=== PATIENT | female | born 1955 | race Caucasian/White ===

== ENCOUNTER 2021-01-29 15:21 | Emergency (ER) | payer BC, SELFPAY ==
--- NOTE | ~2021-01-29 | XR_ITS ---
EXAMINATION: XR CHEST CLINICAL INFORMATION: Shortness of breath COMPARISON: None TECHNIQUE: Frontal view of the chest was obtained. FINDINGS: No significant abnormality is noted involving the heart, lungs, mediastinum, bony thorax or soft tissues. XR/XR chest 1V IMPRESSION: Unremarkable examination.
[2021-01-29 15:35] VITALS: BP 147/93; PULSE 87; RESP 18; TEMP 36.3; O2SAT 98; BMI 40.1
--- NOTE | 2021-01-29 15:45 | ED_ITS ---
HPI - General Adult General Chief complaint: General Medical Stated complaint: covid symptoms Time Seen by Provider: 01/29/21 15:39 Source: patient Mode of arrival: ambulatory Limitations: no limitations History of Present Illness HPI narrative: 65 y/o female with history of HTN, obesity, BHARGAVI who presents to the ED today from home c/o CHACON, body aches and lightheadedness for the last 3 days. She had her 1st COVID vaccine on 01/14. Her symptoms started 3 days ago when she was at work at the [employer]. She reported SOB when walking around as well as dizziness when going from sitting to standing quickly. She reports her doctor has tried her on several medications for her blood pressure lately howevr she has had multiple side effects and required adjustments and changes. She admits to taking half doses of two different pills the last 3 days. Two of them include HCTZ which she did not realize until she was providing her history here today. She denies fever, chills, nausea, vomiting, abdominal pain. She has had some cramping in her muscles. She has been eating and drinking normally but reports a 15 lb weight loss with dietary adjustments to vegan over the last 1 month. MD complaint: CHACON, lightheaded. Onset (ago): day(s) (3) Location: head, chest, left, right and lower extremity Radiation: non-radiation Severity: moderate Quality: aching Pain Consistency: intermittent Relieving factors: rest Exacerbating factors: medication and movement Associated symptoms: confusion, diaphoresis, shortness of breath and weakness Treatments prior to arrival: none Related Data Allergies Allergy/AdvReac Type Severity Reaction Status Date / Time sulfamethoxazole AdvReac Severe STOMACH Verified 01/29/21 15:39 [From BACTRIM] UPSET trimethoprim [From BACTRIM] AdvReac Severe STOMACH Unverified 07/19/20 15:51 UPSET Review of Systems Review of Systems: Constitutional: No Fever, No Chills ENT/Mouth: No sore throat, No Rhinorrhea, No Swallowing Difficulty Eyes: No Eye Pain, No Swelling, No Redness Cardiovascular: No Chest Pain, + SOB, No Orthopnea, No Edema Respiratory: No Cough, No Sputum, No Wheezing, + dyspnea Gastrointestinal: No Nausea, No Vomiting, No Diarrhea, No abdominal Pain, No Hematochezia, No Melena Genitourinary: No Dysuria, + Urinary Frequency, No Hematuria Musculoskeletal: No joint pain, + Myalgias Skin: No Skin Lesions, No rash Neuro: + Weakness (generalized), No Numbness, + Dizziness, No Headache Psych: + Anxiety/Panic, No Depression Heme/Lymph: No Bruising, No Lymphadenopathy Endocrine: No Polyuria, No Polydipsia [facility] Past Medical History Attestation statement: The following information was validated with the patient. Medical History High blood pressure Social History Social History Advance Directives: No Advance Directives Information Provided: Yes Physical Exam Vital Signs: Vital Signs: Last Vital Signs Temp 97.3 F 01/29/21 15:35 Pulse 87 01/29/21 15:35 Resp 18 01/29/21 15:35 BP 147/93 H 01/29/21 15:35 Pulse Ox 98 01/29/21 15:35 Body Mass Index 40.1 Appearance: Alert. Oriented X3. No acute distress. Eyes: Pupils equal, round and reactive to light. ENT: Pharynx normal. Neck: Normal inspection. Neck supple. CVS: Normal heart rate and rhythm. Pulses normal. Respiratory: No respiratory distress. Breath sounds normal. Abdomen: Obese, soft and non-tender. +BS x4 Skin: Skin warm and dry. Normal skin color. Normal skin turgor. No rashes. Extremities: No lower extremity edema. Negative Penelope's sign. Neuro: Oriented X 3. No motor deficit. No sensory deficit. Steady gait. Normal finger to nose and heel to cheung bilaterally. Speaks in clear sentences. Course Course Course Narrative: 65 y/o female presenting with 3 days of feeling unwell with reports of CHACON, muscle aches and lightheadedness since medications have been self adjusted. Concern for dehydration, electrolyte derangements with possibly taking too much HCTZ. With dietary modifications and weight loss she could not be taking in enough calories while working. Doubt ACS given lack of chest pain but will get EKG. Will check basic lab workup, CXR and Viral PCR as well. She is feeling significantly better since getting to the hospital. Reevaluation(s) Reevaluation #1: EKG is normal. CXR is negative. Lab workup unremarkable. It is likely that her symptoms are due to fluctuations in BP vs side effects from the medications that she has been self-titrating at home. We discussed the importance of being honest iwth her doctor and following up with him tomorrow for recs on meds to take for HTN. She was encouraged to come back to the ER if symptoms return or worsen. Stable for d/c. Medical Decision Making Lab Data Result diagrams: 01/29/21 16:09 01/29/21 16:09 Labs: Lab Results 01/29/21 01/29/21 01/29/21 Range/Units 15:51 16:09 16:09 WBC 7.8 (4.8-10.8) X10*3/uL RBC 5.11 (4.20-5.50) X10*6/uL Hgb 14.3 (12.0-16.0) g/dl Hct 43.9 (37-47) % MCV 85.9 (80-98) fL MCH 28.0 (27.0-33.0) pg MCHC 32.6 (31.0-35.0) g/dl RDW 14.2 (11.0-16.0) % Plt Count 416 H (160-400) X10*3/uL MPV 9.2 L (9.4-12.3) fL Immature Gran % (Auto) 0.3 (0.0-0.4) % Neut % (Auto) 70.6 (45-73) % Lymph % (Auto) 20.9 (20-40) % Cochran % (Auto) 6.8 (2-11) % Eos % (Auto) 1.3 (0-4) % Baso % (Auto) 0.1 (0-2) % Lymph # (Auto) 1.6 (1.2-4.9) X10*3/uL [place]chran # (Auto) 0.5 (0.1-1.2) X10*3/uL Eos # (Auto) 0.1 (0.0-0.4) X10*3/uL Baso # (Auto) 0.0 (0.0-0.2) X10*3/uL Abs Immat Gran (auto) 0.02 (0.00-0.03) X10*3/uL Absolute Neuts (auto) 5.5 (2.0-8.3) X10*3/uL Absolute Nucleated RBC 0.000 (0.0-0.012) X10*3/uL Nucleated RBC % (auto) 0.0 (0.0-0.2) /100WBC Sodium 140 (135-145) mmol/L Potassium 4.1 (3.3-5.1) mmol/L Chloride 101 (96-108) mmol/L Carbon Dioxide 27 (22-29) mmol/L Anion Gap 16 (12-20) BUN 17 H (9-16) mg/dL Creatinine 0.85 (0.5-1.4) mg/dL Estim Creat Clear Calc 77.6 Estimated GFR > 60 Random Glucose 95 (60-115) mg/dL Calcium 9.4 (8.4-10.2) mg/dL Magnesium 2.2 (1.6-2.6) mg/dL Coronavirus (PCR) NEGATIVE (Negative) Influenza Type A (PCR) NEGATIVE (Negative) Influenza Type B (PCR) NEGATIVE (Negative) RSV RNA Qual (PCR) NEGATIVE (Negative) ECG Data Attestation: I personally reviewed and interpreted this ECG as follows: Interpretation: normal sinus rhythm, HR 72 bpm, normal AK interval, normal QTc, no ST segment elevations or depressions Critical Care Time Critical Care Time Critical Care Time: No Discharge Plan Discharge Clinical Impression: Adverse drug reaction Qualifiers: Encounter type: initial encounter Qualified Code(s): T50.905A - Adverse effect of unspecified drugs, medicaments and biological substances, initial encounter Patient Disposition: Home, Self-Care Instructions: Hypertension (ED) Additional Instructions: Your EKG was normal. Your chest x-ray was normal. Your lab workup was largely unremarkable, perhaps VERY mild dehydration but not clinically significant. You were negative for COVID, Influenza and RSV. It is likely that your symptoms are due to the blood pressure medications that you have been taking OR variations in your blood pressure at work. Stay hydrated and rest. If you have any worsening or persistent symptoms come back to the ER for further evaluation. Follow up with your doctor tomorrow for recommendations on how you should manage your blood pressure meds.
--- NOTE | 2021-01-29 16:03 | ECG_ITS ---
Test Reason : DIZZINESS Blood Pressure : / mmHG Vent. Rate : 072 BPM Atrial Rate : 072 BPM P-R Int : 150 ms QRS Dur : 076 ms QT Int : 400 ms P-R-T Axes : 045 027 037 degrees QTc Int : 438 ms Normal sinus rhythm Normal ECG When compared with ECG of 01-MAY-2005 12:57, No significant change was found Referred By: Angelina Espinoza Electronically Signed By:Dm Gilbert
[2021-01-29 16:15] LABS: MANUAL DIFF FLAG NO
[2021-01-29 16:21] LABS: Basophils Percent Auto 0.1 % (0-2); Eosinophils Absolute Auto 0.1 X10*3/uL (0.0-0.4); Eosinophils Percent Auto 1.3 % (0-4); Hematocrit 43.9 % (37-47); Hemoglobin 14.3 g/dl (12.0-16.0); Imm Gran Abs Auto 0.02 X10*3/uL (0.00-0.03); Imm Gran Pct Auto 0.3 % (0.0-0.4); Lymphocytes Absolute Auto 1.6 X10*3/uL (1.2-4.9); Lymphocytes Percent Auto 20.9 % (20-40); Mean Corpuscular HGB Conc 32.6 g/dl (31.0-35.0); Mean Corpuscular Volume 85.9 fL (80-98); Mean Platelet Volume 9.2 fL (9.4-12.3); Monocytes Absolute Auto 0.5 X10*3/uL (0.1-1.2); Monocytes Percent Auto 6.8 % (2-11); Neutrophils Absolute Auto 5.5 X10*3/uL (2.0-8.3); Neutrophils Percent Auto 70.6 % (45-73); Platelet Count 416 X10*3/uL (160-400); Red Blood Count 5.11 X10*6/uL (4.20-5.50); Red Cell Distribution Width 14.2 % (11.0-16.0); White Blood Count 7.8 X10*3/uL (4.8-10.8)
[2021-01-29 16:43] LABS: Anion Gap 16 (12-20); Blood Urea Nitrogen 17 mg/dL (9-16); Calcium 9.4 mg/dL (8.4-10.2); Carbon Dioxide 27 mmol/L (22-29); Chloride 101 mmol/L (96-108); Creatinine Clr Calc Pharmacy 77.6; Estimated Glomerular Filt Rate > 60; Glucose Random 95 mg/dL (60-115); Magnesium 2.2 mg/dL (1.6-2.6); Potassium 4.1 mmol/L (3.3-5.1); Sodium 140 mmol/L (135-145)
[2021-01-29 16:45] LABS: Influenza A PCR NEGATIVE (Negative); Influenza B PCR NEGATIVE (Negative); Resp Syncy Virus RNA Qual PCR NEGATIVE (Negative); SARS COV2 PCR INHOUSE NEGATIVE (Negative)
== END 2021-01-29 17:28 | disposition home or self-care (01) ==
PROVIDERS: Physician Assistant; Emergency Provider Emergency Medicine; PCP Hospitalist
DX: M79.10 Myalgia, unspecified site (principal); R06.02 Shortness of breath; T50.2X5A Adverse effect of carbonic-anhydrase inhibitors, benzothiadiazides and other diuretics, initial encounter; Y92.009 Unspecified place in unspecified non-institutional (private) residence as the place of occurrence of the external cause; Z20.822 Contact with and (suspected) exposure to COVID-19
CPT/HCPCS: 0241U; 36415; 71045; 80048; 83735; 85025; 93005; 99283

== ENCOUNTER 2025-02-23 11:39 | Emergency (ER) | payer MEDICARE, BC, SELFPAY ==
[2025-02-23] VITALS (8 sets, daily range): BP systolic 160–187; BP diastolic 80–96; PULSE 62–78; RESP 16; TEMP 36.4–36.6; O2SAT 96; BMI 42.2
--- NOTE | ~2025-02-23 | XR_ITS ---
EXAMINATION: XR CHEST CLINICAL INFORMATION: syncope COMPARISON: January 29, 2021. TECHNIQUE: Frontal view of the chest was obtained. FINDINGS: No consolidation, pleural effusion or pneumothorax. Cardiomediastinal silhouette size is normal. Multilevel thoracic and upper lumbar spondylosis. Patient's large body habitus.. XR/XR chest 1V IMPRESSION: No acute airspace disease. Electronically signed by: Roney Garza MD 02/23/2025 12:43 PM EDT
--- NOTE | ~2025-02-23 | CT_ITS ---
EXAMINATION: CT CERVICAL SPINE WITHOUT CONTRAST CLINICAL INFORMATION: Syncope. Fall. COMPARISON: None available. TECHNIQUE: Contiguous axial images through the cervical spine using 3 mm collimation with bone and soft tissue algorithm. Sagittal and coronal reformatted images acquired. This CT examination was performed using dose optimization techniques as appropriate, variously including the following: *Automated exposure control *Adjustment of mA and/or kV according to patient size (this includes techniques or standardized protocols for targeted exams where dose is matched to indication/reason for exam; i.e. extremities or head) *Use of iterative reconstruction technique DLP: 650.30 mGy centimeter. FINDINGS: Craniocervical junction is intact. C1 is intact. C2 is intact. C3 is intact. C4 is intact. C5 is intact. C6 is intact. Right-sided facet joint hypertrophy. C7 is intact. Facet joint hypertrophy, bilaterally. No gross prevertebral compartment hematoma. Marginal osteophyte formation and endplate sclerosis subchondral cyst formation and decreased intervertebral disc height, C4-5 C5-6 and C6-7 levels. 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 Reverse curvature apex at C4-5. No gross malalignment. Trabeculated bone lesion at T1 likely intraosseous hemangioma. Degenerative changes in the periodontal C1 region. Retropharyngeal trajectory, right carotid artery system. Tympanic cavities and mastoid cells are aerated. Soft tissue fullness versus dominant nodule right thyroid lobe. CT/CT cervical spine wo IV con IMPRESSION: Multilevel cervical spondylosis without acute fracture or trauma-related listhesis. Consider OPLL syndrome C5 C7 resulting in central spinal canal stenosis. Fleischner guidelines were followed. Electronically signed by: Roney Garza MD 02/23/2025 01:24 PM EDT
--- NOTE | ~2025-02-23 | CT_ITS ---
EXAMINATION: CT HEAD WITHOUT CONTRAST CLINICAL INFORMATION: ?head trauma, syncope COMPARISON: None available. TECHNIQUE: Contiguous axial imaging was performed from the skull base to vertex without intravenous administration of contrast. This CT examination was performed using dose optimization techniques as appropriate, variously including the following: *Automated exposure control *Adjustment of mA and/or kV according to patient size (this includes techniques or standardized protocols for targeted exams where dose is matched to indication/reason for exam; i.e. extremities or head) *Use of iterative reconstruction technique DLP: 704.47 mGy-cm FINDINGS: Bony calvarium is intact. Skull base is intact. No acute intracranial hemorrhage, mass effect, midline shift, hydrocephalus or herniation. Posadas-white matter differentiation is normal. Posterior cranial fossa contents demonstrated no acute intracranial hemorrhage. Prominence of the extra-axial CSF spaces cerebral sulci as well as the perimesencephalic cisterns. Old lacunar infarcts, basal ganglia and extracapsular. No air-fluid levels in the paranasal sinuses. Tympanic cavities and mastoid air cells are aerated. CT/CT head/brain wo IV con IMPRESSION: No acute fracture, bony calvarium. No acute intracranial hemorrhage. Small vessel occlusive disease. Electronically signed by: Roney Garza MD 02/23/2025 01:12 PM EDT
--- NOTE | 2025-02-23 12:18 | ECG_ITS ---
Test Reason : SYNCOPE Blood Pressure : */* mmHG Vent. Rate : 68 BPM Atrial Rate : 68 BPM P-R Int : 156 ms QRS Dur : 78 ms QT Int : 422 ms P-R-T Axes : 32 6 10 degrees QTcB Int : 448 ms Normal sinus rhythm Normal ECG When compared with ECG of 29-Jan-2021 16:21, No significant change was found Referred By: Shaina Gifford Electronically Signed By: MARIBELL LALA
--- NOTE | 2025-02-23 12:18 | ED_ITS ---
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 Patient reports waking up from sleep in her recliner around 0100 this morning and then felt nauseous with the urge to defecate. She reports ambulating to the bathroom and having two large loose bowel movements. Reports feeling nauseous with associated chills and diaphoresis. Went to stand up from the toilet and had a syncopal episode. Reports waking up on the bathroom floor. She was able to ambulate back to her couch and fell asleep until morning. Upon waking this morning, she called her insurance hotline to speak with a nurse. They advised her to come to the ED. She reports a tight sensation to her abdomen. No pain or cramping. She has not had any further episodes of loose stool. Last p.o. intake was last night around 11:00 p.m.. Denies consuming any unusual foods. Admits that she did not take her blood pressure medication prior to arrival today. States she feels dehydrated. Denies dizziness, headache, vision changes, chest pain, shortness of breath, nausea, vomiting, abdominal pain, urinary symptoms, flank pain. No recent travel outside the country. Related Data Home Medications ?Medication ?Instructions ?Recorded ?Confirmed No Known Home Meds 10/03/22 10/03/22 Allergies Allergy/AdvReac Type Severity Reaction Status Date / Time sulfamethoxazole AdvReac Severe STOMACH Verified 02/23/25 12: [From BACTRIM] UPSET trimethoprim [From BACTRIM] AdvReac Severe STOMACH Verified 02/23/25 12:22 UPSET Review of Systems 2 Review of Systems: Yes all other systems are reviewed and are negative PMFSH Past Medical History Attestation statement: The following information was validated with the patient. Source: old records reviewed and nursing notes reviewed Medical History High blood pressure Surgical History Hx of appendectomy Hx of adenoidectomy Hx of tonsillectomy Family History Family History Father Heart problem Mother Heart problem Daughter No problems noted. Social History Social History Alcohol intake: current Alcohol intake frequency: holidays/special occasions only Patient Tobacco Use Status: Never used Tobacco Advance Directives: No Advance Directives Information Provided: Yes Do you have a plan to hurt others: No Plan Physical Exam 2 Vital Signs: Vital Signs: Last Vital Signs Temp 97.8 F 02/23/25 18:56 Pulse 67 02/23/25 18:56 Resp 16 02/23/25 18:56 BP 170/89 H 02/23/25 18:56 Pulse Ox 96 02/23/25 18:56 O2 Del Method Room Air 02/23/25 18:56 BMI result Body Mass Index 42.2 Afebrile. hypertensive General: Well appearing, in no acute distress. Skin: Warm, dry, intact. No rashes or lesions. Head: Normocephalic, atraumatic. EENT: Hearing is intact b/l. Conjunctiva clear. Sclera is anicteric. PERRLA. EOM intact. ? Neck: Supple without LAD. FROM. Cardiac: Chest wall symmetric. RRR Lungs: Normal respiratory effort without accessory muscle use. CTA bilaterally. Abdomen: Soft, non-tender, non-distended. No rebound tenderness or guarding. Positive BS x4. Back: No midline spinous tenderness or step-off deformity Ext: Upper and lower extremities atraumatic, without deformity, swelling or erythema Neuro: AOx3. Normal speech. Normal [id number], [id number] Strength 5/5 intact throughout. Sensation intact to light touch. NV intact distally. Ambulating with steady gait to the bathroom. Course Course Course Narrative: This is a Rapid Medical Exam performed in triage by Shaina Gifford PA-C. Full HPI, ROS and PE to be performed by primary ED provider. 69-year-old female with a past medical history HTN presenting to the ED c/o syncopal episode while using the bathroom last night, admits to having chills, diaphoresis, nausea, diarrhea, uneasy stomach and feeling like I was going to prior to syncope & then woke up on the floor. Unknown head trauma or how long she was on the ground. Also reports confusion. denies AC use. denies CP/SOB PE: ambulating w/steady gait, nonfocal. Plan: EKG, labs, UA, orthostatics, CXR Reevaluation(s) Reevaluation #1: CBC without leukocytosis or left shift. No anemia. H&H stable. Chemistry without acute electrolyte abnormality requiring intervention. No BILL. Liver function around baseline. Troponin undetectable. Lipase WNL. Urine without infection. Negative COVID, flu, RSV. Chest x-ray without infiltrate or consolidation to suggest pneumonia. CT head/brain without intracranial bleed or mass. CT cervical spine without fracture or subluxation. > orthostatics negative. She was treated with 1 L of IV fluids. I personally had patient get up out of bed to ambulate. she ambulated down the hallway with steady gait. Does not endorse feeling dizzy. She states she feels well. She is tolerating p.o. intake. She has been unable to give us a stool sample. She was had no further episodes of diarrhea since early this morning. abdominal exam benign. unlikely acute intra-abdominal pathology. Patient has remained stable throughout ED visit today. Discussed worrisome signs and symptoms and when to return to the ED. All questions answered at this time. Patient is agreeable with disposition and stable for discharge. 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 Hypertensive, vitals are otherwise WNL. She is nontoxic-appearing and in no acute distress. Exam is nonfocal. NIH 0. Cerebellum intact. Obese abdomen, soft, nondistended, nontender to palpation. No rebound tenderness or guarding. Active bowel sounds x4. Differential diagnosis includes anemia, electrolyte abnormality, dehydration, gastroenteritis, gastritis, orthostatic hypotension, urinary tract infection Unlikely PE, ICH, CVA/TIA, cdiff. Plan for labs, urine, ortho vitals, EKG, imaging, re-evaluation Differential Diagnosis Differential Diagnoses: The differential diagnosis associated with the presentation includes As above Admission/Observation Not indicated Lab Data MDM Lab Attestation statement: I reviewed the patient's lab results. As above 02/23/25 13:34 02/23/25 13:34 Labs: Lab Results 02/23/25 02/23/25 Range/Units 13:34 15:59 WBC 6.9 (4.8-10.8) X10*3/uL RBC 5.44 (4.20-5.50) X10*6/uL Hgb 14.7 (12.0-16.0) g/dl Hct 44.0 (37.0-47.0) % MCV 80.9 (80.0-98.0) fL MCH 27.0 (27.0-33.0) pg MCHC 33.4 (31.0-35.0) g/dl RDW 14.0 (11.0-16.0) % Plt Count 398 (160-400) X10*3/uL MPV 9.6 (9.4-12.3) fL Immature Gran % (Auto) 0.3 (0.0-0.4) % Neut % (Auto) 73.6 H (45-73) % Lymph % (Auto) 19.6 L (20-40) % [place] % (Auto) 5.8 (2-11) % Eos % (Auto) 0.4 (0-4) % Baso % (Auto) 0.3 (0-2) % Lymph # (Auto) 1.3 (1.2-4.9) X10*3/uL [place] # (Auto) 0.4 (0.1-1.2) X10*3/uL Eos # (Auto) 0.0 (0.0-0.4) X10*3/uL Baso # (Auto) 0.0 (0.0-0.2) X10*3/uL Abs Immat Gran (auto) 0.02 (0.00-0.03) X10*3/uL Absolute Neuts (auto) 5.0 (2.0-8.3) x10*3/uL Absolute Nucleated RBC 0.000 (0.0-0.012) X10*3/uL Nucleated RBC % (auto) 0.0 (0.0-0.2) /100WBC Sodium 140 (135-145) mmol/L Potassium 3.5 (3.3-5.1) mmol/L Chloride 101 (96-108) mmol/L Carbon Dioxide 31 H (22-29) mmol/L Anion Gap 12 (12-20) BUN 12 (9-16) mg/dL Creatinine 0.75 (0.5-1.4) mg/dL Estim Creat Clear Calc 85.7 Estimated GFR > 60 Random Glucose 110 (60-115) mg/dL Calcium 9.5 (8.4-10.2) mg/dL Magnesium 2.1 (1.6-2.6) mg/dL Total Bilirubin 1.2 H (0.0-1.0) mg/dL Direct Bilirubin 0.4 (0.0-0.5) mg/dL AST 41 H (5-31) U/L ALT 32 H (0-31) U/L Alkaline Phosphatase 104 (39-117) U/L Total Creatine Kinase 117 (26-140) U/L Troponin I High Sens < 2.7 (<3.5-17.0) ng/L Total Protein 7.3 (6.5-8.0) g/dL Albumin 4.2 (3.5-5.0) g/dL Lipase 23 (8-78) U/L Urine Color Yellow Urine Appearance Cloudy Urine pH 6.0 (5.0-9.0) Ur Specific [place] 1.020 (1.005-1.025) Urine Protein Trace (Neg-Trace) mg/dL Urine Glucose (UA) Negative (Negative) mg/dL Urine Ketones Trace (Negative) mg/dL Urine Blood Negative (Negative) Urine Nitrite Negative (Negative) Ur Leukocyte Esterase Small (1+) H (Negative) Urine RBC 0-2 (0-2) /HPF Urine WBC 0-5 (0-5) /HPF Ur Squamous Epith Cells >20 (0-2) /HPF Urine Bacteria Trace (None Seen) Hyaline Casts 0-2 (0-2) /LPF Influenza Type A (PCR) NEGATIVE (Negative) Influenza Type B (PCR) NEGATIVE (Negative) RSV RNA Qual (PCR) NEGATIVE (Negative) SARS-CoV-2 RNA (RT-PCR) NEGATIVE (Negative) Independent Interpretation I performed an independent interpretation of an: EKG, Plain X-Ray and CT Scan Interpretation: Chest x-ray without infiltrate or consolidation to suggest pneumonia CT head/brain without intracranial bleed or mass CT cervical spine without fracture ekg showing normal sinus rhythm, rate of 68 beats per minute, QT 422, QTC 448, no acute ischemic changes or ST elevations Radiology Impression Discussion of test interpretation with radiology: I have reviewed the radiologist's reading. Radiologist Impression: Procedure(s): XR chest 1V Accession Number(s): [id number] cc: Aleksandra Clements NP; Shaina Gifford~ EXAMINATION: XR CHEST CLINICAL INFORMATION: syncope COMPARISON: January 29, 2021. TECHNIQUE: Frontal view of the chest was obtained. FINDINGS: No consolidation, pleural effusion or pneumothorax. Cardiomediastinal silhouette size is normal. Multilevel thoracic and upper lumbar spondylosis. Patient's large body habitus.. XR/XR chest 1V IMPRESSION: No acute airspace disease. Date of Service: 02/23/25 Procedure(s): CT head/brain wo IV con Accession Number(s): [id number] cc: Aleksandra Clements NP; Shaina Gifford~ Report Number: [id number]: Total DLP = 1365.00 mGy-cm EXAMINATION: CT HEAD WITHOUT CONTRAST CLINICAL INFORMATION: ?head trauma, syncope COMPARISON: None available. TECHNIQUE: Contiguous axial imaging was performed from the skull base to vertex without intravenous administration of contrast. This CT examination was performed using dose optimization techniques as appropriate, variously including the following: *Automated exposure control *Adjustment of mA and/or kV according to patient size (this includes techniques or standardized protocols for targeted exams where dose is matched to indication/reason for exam; i.e. extremities or head) *Use of iterative reconstruction technique DLP: 704.47 mGy-cm FINDINGS: Bony calvarium is intact. Skull base is intact. No acute intracranial hemorrhage, mass effect, midline shift, hydrocephalus or herniation. Posadas-white matter differentiation is normal. Posterior cranial fossa contents demonstrated no acute intracranial hemorrhage. Prominence of the extra-axial CSF spaces cerebral sulci as well as the perimesencephalic cisterns. Old lacunar infarcts, basal ganglia and extracapsular. No air-fluid levels in the paranasal sinuses. Tympanic cavities and mastoid air cells are aerated. CT/CT head/brain wo IV con IMPRESSION: No acute fracture, bony calvarium. No acute intracranial hemorrhage. Small vessel occlusive disease. Procedure(s): CT cervical spine wo IV con Accession Number(s): [id number] cc: Aleksandra Clements WORKFORCE INVESTMENT ACT CAREER MANAGER; Shaina Gifford~ Report Number: [id number]: Total DLP = 1365.00 mGy-cm EXAMINATION: CT CERVICAL SPINE WITHOUT CONTRAST CLINICAL INFORMATION: Syncope. Fall. COMPARISON: None available. TECHNIQUE: Contiguous axial images through the cervical spine using 3 mm collimation with bone and soft tissue algorithm. Sagittal and coronal reformatted images acquired. This CT examination was performed using dose optimization techniques as appropriate, variously including the following: *Automated exposure control *Adjustment of mA and/or kV according to patient size (this includes techniques or standardized protocols for targeted exams where dose is matched to indication/reason for exam; i.e. extremities or head) *Use of iterative reconstruction technique DLP: 650.30 mGy centimeter. FINDINGS: Craniocervical junction is intact. C1 is intact. C2 is intact. C3 is intact. C4 is intact. C5 is intact. C6 is intact. Right-sided facet joint hypertrophy. C7 is intact. Facet joint hypertrophy, bilaterally. No gross prevertebral compartment hematoma. Marginal osteophyte formation and endplate sclerosis subchondral cyst formation and decreased intervertebral disc height, C4-5 C5-6 and C6-7 levels. 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 Reverse curvature apex at C4-5. No gross malalignment. Trabeculated bone lesion at T1 likely intraosseous hemangioma. Degenerative changes in the periodontal C1 region. Retropharyngeal trajectory, right carotid artery system. Tympanic cavities and mastoid cells are aerated. Soft tissue fullness versus dominant nodule right thyroid lobe. CT/CT cervical spine wo IV con IMPRESSION: Multilevel cervical spondylosis without acute fracture or trauma-related listhesis. Consider OPLL syndrome C5 C7 resulting in central spinal canal stenosis. Fleischner guidelines were followed. External Record Review External record reviewed: Inpatient record Chronic Conditions Patient?s care impacted by: Hypertension Social Determinants Patient?s care significantly limited by Social Determinants of Health including: Other Social Determinant of Health Critical Care Time Critical Care Time Critical Care Time: No Discharge Plan Discharge Clinical Impression: Syncope, Diarrhea Patient Disposition: Home, Self-Care Instructions: Syncope (ED), Acute Diarrhea (ED) Additional Instructions: You were evaluated in the ED today following a syncope episode today. Your blood work is reassuring. Your chest x-ray is normal. Your EKG is normal. The CT scan of your head does not demonstrate bleed or skull fracture. The CT scan of your neck shows stenosis of your spine. No acute fracture. We treated you with fluids today with improvement in your symptoms. You are feeling well and ambulating with steady gait. You were unable to provide us with a stool sample today. Make sure you are staying adequately hydrated. Continue all home meds as prescribed. Follow up with your PCP. Return with any new or worsening symptoms. In the case of an emergency call 911. Prescriptions: No Action No Known Home Meds Referrals: Aleksandra Clements NP [Primary Care Provider] - Stand Alone Forms: Work/School Release Interventions: ED Discharge Assessment Last Done: 02/23/25 18:56 Discharge Date/Time: 02/23/25 18:59 Print Language: [place]guill[place]
[2025-02-23 13:41] LABS: MANUAL DIFF FLAG NO
[2025-02-23 13:50] LABS: Basophils Percent Auto 0.3 % (0-2); Eosinophils Percent Auto 0.4 % (0-4); Hemoglobin 14.7 g/dl (12.0-16.0); Imm Gran Abs Auto 0.02 X10*3/uL (0.00-0.03); Imm Gran Pct Auto 0.3 % (0.0-0.4); Lymphocytes Absolute Auto 1.3 X10*3/uL (1.2-4.9); Lymphocytes Percent Auto 19.6 % (20-40); Mean Corpuscular HGB Conc 33.4 g/dl (31.0-35.0); Mean Corpuscular Volume 80.9 fL (80.0-98.0); Mean Platelet Volume 9.6 fL (9.4-12.3); Monocytes Absolute Auto 0.4 X10*3/uL (0.1-1.2); Monocytes Percent Auto 5.8 % (2-11); Neutrophils Percent Auto 73.6 % (45-73); Platelet Count 398 X10*3/uL (160-400); Red Blood Count 5.44 X10*6/uL (4.20-5.50); White Blood Count 6.9 X10*3/uL (4.8-10.8)
[2025-02-23 14:01] LABS: Alanine Aminotransferase 32 U/L (0-31); Albumin Level 4.2 g/dL (3.5-5.0); Alkaline Phosphatase 104 U/L (39-117); Anion Gap 12 (12-20); Aspartate Amino Transferase 41 U/L (5-31); Bilirubin Direct 0.4 mg/dL (0.0-0.5); Bilirubin Total 1.2 mg/dL (0.0-1.0); Blood Urea Nitrogen 12 mg/dL (9-16); Calcium 9.5 mg/dL (8.4-10.2); Carbon Dioxide 31 mmol/L (22-29); Chloride 101 mmol/L (96-108); Creatinine Clr Calc Pharmacy 85.7; Estimated Glomerular Filt Rate > 60; Glucose Random 110 mg/dL (60-115); Lipase 23 U/L (8-78); Magnesium 2.1 mg/dL (1.6-2.6); Potassium 3.5 mmol/L (3.3-5.1); Sodium 140 mmol/L (135-145); Total Protein 7.3 g/dL (6.5-8.0)
[2025-02-23 14:05] LABS: Troponin-I High Sensitivity < 2.7 ng/L (<3.5-17.0)
[2025-02-23 14:22] LABS: Influenza A PCR NEGATIVE (Negative); Influenza B PCR NEGATIVE (Negative); Resp Syncy Virus RNA Qual PCR NEGATIVE (Negative); SARS COV2 PCR INHOUSE NEGATIVE (Negative)
--- OUTSIDE RECORDS SUMMARY | 2025-02-23 15:23 | XMS_ITS | Patient Health Record ---
[facility] Address [address] [place] [address] Care Team Providers Care Regulatory Coordinator Name Role Phone Ignacio Ramirez MD Primary Care Provider Unavailab Li Chicas Unavailable [phone] Allergies Allergen (clinical drug ingredient) Drug/Non Drug Allergy documented on EMR Reaction Allergy Type Onset Date Status blood pressure meds (uncoded) chest pain, cough, migrane, esophageal spasm Allergy Active Adhesive peeling skin Allergy Active Substance with sulfonamide structure and antibacterial mechanism of action (substance) Sulfa Antibiotics extreme abdominal pain Drug Allergy Active Reason For Referral No Information Medications Medication SIG (Take, Route, Frequency, Duration) Notes Start Date End Date Status Detox Alt Health Supplement/Regimen herbs Active Zomig 2.5 MG 1 tablet Orally Once a day for 1 day(s) PRN Active Immunizations Vaccine Route Administration Date Status Comme nts COVID-19 Pfizer BioNTech Vaccine Unknown 02/14/2021 Administered 1st 01/14/2021 2nd 02/14/2021 Influenza Unknown 10/23/2021 Refused Social History Tobacco Use: Social History Observation Description Date Details (start date - stop date) Never Smoker NA - NA Tobacco Use/Smoking Question Answer Notes Are you a: nonsmoker Additional Findings: Tobacco Non-User Current no n-smoker Alcohol Screen Question Answer Notes Did you have a drink containing alcohol in the p ast year? No Points 0 Interpretation Negative Tobacco use other than smoking: Question Answer Notes Are you an other tobacco user? No Plan Of Treatment No Information Insurance Providers Payer Name Payer Address Payer Phone Subscriber Number Group Number Insured Name Patient Relationship to Insured Coverage Start Date Coverage End Date [employer] [address] [place] [address] [id number] Lesli Singhy Self - patient is the insured [facility] [address] [place] [address] [id number] Opal Singh Self - patient is the insured Medical (General) History Medical History History ICD Code Anemia Back,Hip,and Knee pain Headaches/Migraines High blood pressure Numbness Reflux ( GERD) Sciatica chronic sinusitis thyroid ulcer COVID-19 Measles Mumps Chicken pox Transfusions fatigue, extreme connective tissue pain brain fog Fibroids Surgical History Surgery Date(Month/Year) tonsillectomy and adenoidectomy childhoo d appendectomy 1998
[2025-02-23] MEDS: 0.9 % Sodium Chloride 1,000 ML 999 ML IV (15:58)
--- NOTE | 2025-02-23 16:04 | PC.NURSE ---
Pt up to the bathroom to given urine sample. Pt back to bed. IV placed. Fluids started
[2025-02-23 16:11] LABS: Appearance Urine Cloudy; Color Urine Yellow; Glucose Urine UA Negative (Negative); Leukocyte Esterase Urine Small (1+) (Negative); Nitrite Urine Negative (Negative); UMIC TRIGGER UACC YES; Urine Blood Negative (Negative); Urine Ketones Trace mg/dL (Negative); Urine Protein Trace mg/dL (Neg-Trace)
[2025-02-23 16:26] LABS: Bacteria Urine Trace (None Seen); Hyaline Casts Urine 0-2 /LPF (0-2); RBC Urine 0-2 /HPF (0-2); Squamous Epithelial Cell Urine >20 /HPF (0-2); UACC Culture Trigger YES; WBC Urine 0-5 /HPF (0-5)
== END 2025-02-23 18:59 | disposition home or self-care (01) ==
PROVIDERS: Physician Assistant; Emergency Provider Emergency Medicine; PCP Nurse Practitioner Family
DX: R55 Syncope and collapse (principal); R19.7 Diarrhea, unspecified; I10 Essential (primary) hypertension; Z79.899 Other long term (current) drug therapy; Z03.818 Encounter for observation for suspected exposure to other biological agents ruled out
CPT/HCPCS: 0241U; 36415; 70450; 71045; 72125; 80048; 80076; 81001; 82550; 83690; 83735; 84484; 85025; 87086; 93005; 99284

== ENCOUNTER → 2025-02-23 12:18 | Outpatient (BNV) | payer MEDICARE, BC, SELFPAY | PROVIDERS: Emergency Provider Emergency Medicine; PCP Nurse Practitioner Family; Visit Provider Internal Medicine | DX: R55 Syncope and collapse (principal) | CPT/HCPCS: 93010 ==

== ENCOUNTER → 2025-02-23 12:20 | Outpatient (BNV) | payer MEDICARE, BC, SELFPAY | PROVIDERS: PCP Nurse Practitioner Family; Visit Provider Radiology Diagnostic Radiology | DX: R55 Syncope and collapse (principal); W19.XXXA Unspecified fall, initial encounter | CPT/HCPCS: 70450; 71045; 72125 ==